=== PATIENT | female | born 1980 ===

== ENCOUNTER 2022-08-14 12:18 | Outpatient (CLI) | payer OTHER ==
[~2022-08-14 12:18] MED LIST: Magnevist 469MG/ML 20 ML VIAL ONE
== END 2022-08-14 12:19 | disposition home or self-care (01) ==
LOC: MRI 12:18
PROVIDERS: ATTEND Family Medicine
DX: M79.605 Pain in left leg (principal); M79.604 Pain in right leg; G37.9 Demyelinating disease of central nervous system, unspecified; M51.24 Other intervertebral disc displacement, thoracic region; M51.26 Other intervertebral disc displacement, lumbar region; M51.27 Other intervertebral disc displacement, lumbosacral region
CPT/HCPCS: 72148; 72156; 72157; A9579